=== PATIENT | male | born 1985 | race Caucasian/White ===

== ENCOUNTER 2017-07-06 10:56 | Emergency (ER) | payer BC ==
[2017-07-06 11:16] VITALS: BP 134/78
[2017-07-06] MEDS ORDERED: Doxycycline 100 MG Cap PO ONE (11:41)
[2017-07-06] MEDS ORDERED: Famotidine 20 MG Tab PO ONE (11:41)
--- NOTE | 2017-07-06 11:48 | EDM.PDOC ---
ED HPI GENERAL MEDICAL PROBLEM - General Chief Complaint: Skin Complaint Stated Complaint: RASH ON ARMS AND SHOULDERS Time Seen by Provider: 07/06/17 11:35 Source of Information: Reports: Patient History Limitations: Reports: No Limitations - History of Present Illness INITIAL COMMENTS - FREE TEXT/NARRATIVE: Patient is a 32-year-old male who presents to the ED complaining of a rash to his back and right upper arm. States this past Wednesday awoke with the rash to his back. States he itched it with worsening symptoms. States yesterday while at work he was itching the right upper arm and developed the same rash. There is some minimal clear drainage present. Yellowish crusting over noted. Sites are maculopapular in nature and raised with mild induration present. He has a history of abscesses to his armpits. Denies any history of MRSA. No other individuals in his family have similar rash. Questions if this maybe related to a bug bite. Denies any fever/chills or any additional complaints. Redness is localized. - Related Data Allergies Allergy/AdvReac Type Severity Reaction Status Date / Time pineapple Allergy Airway Verified 07/06/17 11:13 Tightness Home Meds: Home Meds Doxycycline [Vibramycin] 100 mg PO Q12HR #14 cap 07/06/17 [Rx] Past Medical History - Past Health History Medical/Surgical History: Denies Medical/Surgical History Social & Family History - Tobacco Use Smoking Status *Q: Current Some Day Smoker Years of Tobacco use: 10 Packs/Tins Daily: 0.1 Second Hand Smoke Exposure: No - Alcohol Use Days Per Week of Alcohol Use: 3 Number of Drinks Per Day: 3 Total Drinks Per Week: 9 - Recreational Drug Use Recreational Drug Use: No ED ROS GENERAL - Review of Systems Review Of Systems: ROS reveals no pertinent complaints other than HPI. ED EXAM, SKIN/RASH Exam: See Below Exam Limited By: No Limitations General Appearance: Alert, WD/WN, No Apparent Distress Ears: Hearing Grossly Normal Nose: Normal Inspection Throat/Mouth: Normal Voice, No Airway Compromise Neck: Normal Inspection, Supple Respiratory/Chest: No Respiratory Distress, No Accessory Muscle Use Cardiovascular: Normal Peripheral Pulses, Regular Rate, Rhythm Peripheral Pulses: 2+: Radial (R) Neurological: Alert, Oriented, CN II-XII Intact, Normal Cognition, No Motor/ Sensory Deficits Psychiatric: Normal Affect, Normal Mood Skin: Warm, Dry Location, Skin: Back (Upper back and base of the neck and right upper arm.: Maculopapular nature, minimal drainage present., Yellowish crusting present., Sites are indurated and raised) Course - Vital Signs Last Recorded V/S: Last Vital Signs Temp 97.7 F 07/06/17 11:13 Pulse 87 07/06/17 11:13 Resp BP 134/78 07/06/17 11:13 Pulse Ox 99 07/06/17 11:13 - Orders/Labs/Meds Meds: Medications Discontinued Medications Generic Name Dose Route Start Last Admin Trade Name Marissa PRN Reason Stop Dose Admin Doxycycline Hyclate 200 mg 07/06/17 11:41 07/06/17 12:00 Vibramycin PO 07/06/17 11:42 200 mg ONETIME ONE Administration Famotidine 40 mg 07/06/17 11:41 07/06/17 12:00 Pepcid PO 07/06/17 11:42 40 mg ONETIME ONE Administration - Re-Assessments/Exams Free Text/Narrative Re-Assessment/Exam: Patient has what appears to be bug bites to his right upper arm, upper back, and neck. Localized swelling with induration and yellowish crusting noted. He does have a history of abscesses to his armpits. No history of MRSA. Treatment at this point is doxycycline 100 mg twice a day and Pepcid 40 mg every day with Benadryl 50 mg every 6 hours as needed for itching. He'll utilize topical cortisone cream as well. I have ordered doxycycline 200 mg by mouth and Pepcid 40 mg here in the ED. Discharge instructions as documented. Departure - Departure Time of Disposition: 11:46 Disposition: Home, Self-Care 01 Condition: Good Clinical Impression: Acute maculopapular rash, Localized bacterial skin infection, Pruritic rash Clinical Impression: (Ruled Out): Urticaria - Discharge Information Prescriptions: Doxycycline [Vibramycin] 100 mg PO Q12HR #14 cap Instructions: Rash Referrals: PCP,None [Primary Care Provider] - Forms: ED Department Discharge, ED Return to Work/School Form Additional Instructions: Take doxycycline 100 mg twice a day for 7 days. Take Pepcid 40 mg every day for 7 days. For itching take Benadryl 50 mg every 6 hours as needed. Beware of Benadryl will cause drowsiness. Utilize localized [id number] hydrocortisone cream to affected areas. Do not scratch the areas. Wash hands after applying the order cortisone cream. If draining keep covered. I'll be her PCP the end of this week if symptoms aren't improving. Return to ED for any new or worsening symptoms. Unclear etiology of rash. Sites are infected secondary to itching.
== END 2017-07-06 11:55 | disposition home or self-care (01) ==
LOC: JD.ED 10:56
DX: L29.9 Pruritus, unspecified (principal); R21 Rash and other nonspecific skin eruption; F17.210 Nicotine dependence, cigarettes, uncomplicated; Z91.018 Allergy to other foods
CPT/HCPCS: 99282; A9270

== ENCOUNTER 2020-03-12 19:54 | Emergency (ER) | payer SELFPAY ==
[2020-03-12 20:10] VITALS: BP 151/73; PULSE 88
[2020-03-12] MEDS ORDERED: Cephalexin 500 MG Cap PO ONE (20:23)
--- NOTE | 2020-03-12 20:29 | EDM.PDOC ---
ED HPI GENERAL MEDICAL PROBLEM - General Chief Complaint: Skin Complaint Stated Complaint: bug bite Time Seen by Provider: 03/12/20 20:08 Source of Information: Reports: Patient, RN Notes Reviewed History Limitations: Reports: No Limitations - History of Present Illness INITIAL COMMENTS - FREE TEXT/NARRATIVE: Patient is a 34-year-old male who presents to the ED for the evaluation of a sore and redness to the upper inner part of his left arm. Patient states that he had 2 white pimple looking lesions on this area today, he was in the shower, and ended up popping so he scrubbed them with some soap, and went about his day. He noted that at after the end of work today his arm began to kind of throb and feel warm so he looked at this area again, he noticed a lot of redness and swelling. This is roughly a 9 cm x 9 cm patch. There is an area that is scabbed over in the middle of it. Patient denies any fever/chills, nausea/vomiting/diarrhea, or any other sick-like symptoms. Left Upper Arm Pain Score (Numeric/FACES): 4 - Related Data Allergies Allergy/AdvReac Type Severity Reaction Status Date / Time pineapple Allergy Airway Verified 03/12/20 20:10 Tightness Home Meds: Home Meds cephALEXin [Cephalexin] 500 mg PO BID #14 capsule 03/12/20 [Rx] Past Medical History - Past Health History Medical/Surgical History: Denies Medical/Surgical History Cardiovascular History: Reports: None Respiratory History: Reports: None Gastrointestinal History: Reports: None Genitourinary History: Reports: None Musculoskeletal History: Reports: None Neurological History: Reports: None Psychiatric History: Reports: None Endocrine/Metabolic History: Reports: Obesity/BMI 30+ Hematologic History: Reports: None Immunologic History: Reports: None Oncologic (Cancer) History: Reports: None Dermatologic History: Reports: None - Infectious Disease History Infectious Disease History: Reports: None - Past Surgical History HEENT Surgical History: Reports: Oral Surgery Social & Family History - Caffeine Use Caffeine Use: Reports: Coffee - Recreational Drug Use Recreational Drug Use: No ED ROS GENERAL - Review of Systems Review Of Systems: Comprehensive ROS is negative, except as noted in HPI. ED EXAM, SKIN/RASH Exam: See Below Exam Limited By: No Limitations General Appearance: Alert, WD/WN, No Apparent Distress Respiratory/Chest: No Respiratory Distress, Lungs Clear, Normal Breath Sounds, No Accessory Muscle Use, Chest Non-Tender Cardiovascular: Normal Peripheral Pulses, Regular Rate, Rhythm, No Murmur Peripheral Pulses: 3+: Radial (L), Radial (R) Extremities: Normal Range of Motion, Normal Capillary Refill Neurological: Alert, Oriented, Normal Cognition, No Motor/Sensory Deficits Psychiatric: Normal Affect, Normal Mood Skin: Warm, Dry, Intact, Normal Color, Erythema (roughly 9x9cm area to upper inner left arm with scab in the middle of this.), Increased Warmth (to area of concern) Course - Vital Signs Last Recorded V/S: Last Vital Signs Temp 97.5 F 03/12/20 20:07 Pulse 88 03/12/20 20:07 Resp 16 03/12/20 20:07 BP 151/73 H 03/12/20 20:07 Pulse Ox 96 03/12/20 20:07 - Orders/Labs/Meds Meds: Medications Discontinued Medications Generic Name Dose Route Start Last Admin Trade Name Marissa PRN Reason Stop Dose Admin Cephalexin 500 mg 03/12/20 20:23 Keflex PO 03/12/20 20:24 ONETIME ONE - Re-Assessments/Exams Free Text/Narrative Re-Assessment/Exam: 03/12/20 20:27 Patient presents to the ED for evaluation of some redness on his upper inner arm. Patient will be started on Keflex for suspected cellulitis. First dose to be given in the ER, he will need to fill the rest tomorrow and take as directed. Departure - Departure Time of Disposition: 20:27 Disposition: Home, Self-Care 01 Condition: Good Clinical Impression: Cellulitis Qualifiers: Site of cellulitis: extremity Site of cellulitis of extremity: upper extremity Laterality: left Qualified Code(s): L03.114 - Cellulitis of left upper limb - Discharge Information *PRESCRIPTION DRUG MONITORING PROGRAM REVIEWED*: No Prescriptions: cephALEXin [Cephalexin] 500 mg PO BID #14 capsule Instructions: Cellulitis, Adult, [id number] Referrals: PCP,None [Primary Care Provider] - Additional Instructions: You were evaluated in the ER today regarding a suspected skin infection. It does appear that you have a cellulitis. Your skin was marked around the borders of the redness, if this redness should extend 2 finger widths past this initial mariah, recommend you seek care for re-evaluation. You were given a antibiotic, cephalexin 500mg BID x 7 days please take as prescribed until the course is done or told otherwise by different provider. Please note that this antibiotic will take at least 48 hours to start working appropriately. You may try to use heat/ice packs to the area to help reduce pain/swelling. You may take 500 mg Tylenol or 600 mg ibuprofen every 6 hours as needed for further pain relief. Do not exceed 4000 mg Tylenol or 3200 mg ibuprofen in a 24 -hour time span. Please return to the ER at any time if your symptoms change or worsen. Sepsis Event Note (ED) - Evaluation Sepsis Screening Result: No Definite Risk - Focused Exam Vital Signs: Vital Signs Temp Pulse Resp BP Pulse Ox 03/12/20 20:07 97.5 F 88 16 151/73 H 96
== END 2020-03-12 20:45 | disposition home or self-care (01) ==
LOC: JD.ED 19:54
DX: L03.114 Cellulitis of left upper limb (principal); E66.9 Obesity, unspecified; Z68.43 Body mass index [BMI] 50.0-59.9, adult; Z91.018 Allergy to other foods
CPT/HCPCS: 99282; 99283; A9270-GY

== ENCOUNTER 2021-08-03 08:16 | Emergency (ER) | payer OTHER ==
[2021-08-03 08:35] VITALS: BP 198/112; PULSE 98
--- NOTE | 2021-08-03 08:50 | EDM.PDOC ---
ED HPI GENERAL MEDICAL PROBLEM - General Chief Complaint: Lower Extremity Injury/Pain Stated Complaint: ankle pain Time Seen by Provider: 08/03/21 08:33 Source of Information: Reports: Patient, RN Notes Reviewed - History of Present Illness INITIAL COMMENTS - FREE TEXT/NARRATIVE: 36 yr old male comes in with R ankle pain that started about 2 wks ago, does not remember any particular injury. The was more with wt bearing, now "hurts all of the time". No hx of gout. On his feet a lot on hard cement floor at work. right foot Pain Score (Numeric/FACES): 7 - Related Data Allergies Allergy/AdvReac Type Severity Reaction Status Date / Time pineapple Allergy Airway Verified 08/03/21 08:36 Tightness Home Meds: Home Meds Naproxen [Naprosyn] 500 mg PO Q12HR #14 tab 08/03/21 [Rx] predniSONE [Prednisone] 50 mg PO DAILY #7 tablet 08/03/21 [Rx] Past Medical History - Past Health History Medical/Surgical History: Denies Medical/Surgical History Cardiovascular History: Reports: None Respiratory History: Reports: None Gastrointestinal History: Reports: None Genitourinary History: Reports: None Musculoskeletal History: Reports: None Neurological History: Reports: None Psychiatric History: Reports: None Endocrine/Metabolic History: Reports: Obesity/BMI 30+ Hematologic History: Reports: None Immunologic History: Reports: None Oncologic (Cancer) History: Reports: None Dermatologic History: Reports: None - Infectious Disease History Infectious Disease History: Reports: None - Past Surgical History HEENT Surgical History: Reports: Oral Surgery Social & Family History - Tobacco Use Tobacco Use Status *Q: Never Tobacco User - Caffeine Use Caffeine Use: Reports: Coffee - Recreational Drug Use Recreational Drug Use: No Review of Systems - Review of Systems Review Of Systems: See Below Constitutional: Denies: Chills, Fever Eyes: Reports: No Symptoms Mouth/Throat: Reports: No Symptoms Respiratory: Reports: No Symptoms Cardiovascular: Reports: No Symptoms GI/Abdominal: Reports: No Symptoms Musculoskeletal: Reports: Joint Pain Neurological: Reports: No Symptoms ED EXAM, GENERAL - Physical Exam Exam: See Below General Appearance: Alert, No Apparent Distress Head: Atraumatic Neck: Supple Respiratory/Chest: No Respiratory Distress Extremities: Other (mild to moderate tenderness miedial and lateral ankle, slight swelling, no warmth or erythema, has an abrasion dorsal foot) Skin Exam: Warm, Dry, Normal Color Course - Vital Signs Last Recorded V/S: Last Vital Signs Temp 98.8 F 08/03/21 08:32 Pulse 98 08/03/21 08:32 Resp 18 08/03/21 08:32 BP 198/112 H 08/03/21 08:32 Pulse Ox 95 08/03/21 08:32 - Orders/Labs/Meds Meds: Medications Discontinued Medications Generic Name Dose Route Start Last Admin Trade Name Marissa PRN Reason Stop Dose Admin Naproxen 500 mg 08/03/21 09:49 08/03/21 10:03 Naproxen 500 Mg Tab PO 08/03/21 09:50 500 mg ONETIME ONE Administration Prednisone 40 mg 08/03/21 09:49 08/03/21 10:03 Prednisone 20 Mg Tab PO 08/03/21 09:50 40 mg ONETIME ONE Administration - Re-Assessments/Exams Free Text/Narrative Re-Assessment/Exam: 08/03/21 10:42 X ray no fx. This may be a sprain, repetitive stress but may also be gout, discharge instr. as documented. Departure - Departure Time of Disposition: 10:11 Disposition: Home, Self-Care 01 Condition: Fair Clinical Impression: Ankle pain, right Qualifiers: Chronicity: acute Qualified Code(s): M25.571 - Pain in right ankle and joints of right foot - Discharge Information Prescriptions: Naproxen [Naprosyn] 500 mg PO Q12HR #14 tab predniSONE [Prednisone] 50 mg PO DAILY #7 tablet Instructions: Ankle Pain Referrals: PCP,None [Primary Care Provider] - Forms: ED Department Discharge Additional Instructions: Rest and elevate foot and ankle as much as possible. Naprosyn 500 mg twice daily. Prednisone 50 q AM for 1 week. Prescriptions have been sent to [facility]. They open at 12 noon today and are open only until 4 PM. Follow up clinic if not much better within 5 to 7 days as expected. Return to ED as needed. Sepsis Event Note (ED) - Evaluation Sepsis Screening Result: No Definite Risk - Focused Exam Vital Signs: Vital Signs Temp Pulse Resp BP Pulse Ox 08/03/21 08:32 98.8 F 98 18 198/112 H 95
[2021-08-03] MEDS ORDERED: predniSONE 20 MG Tab PO ONE (09:49)
[2021-08-03] MEDS ORDERED: Naproxen 500 MG Tab PO ONE (09:49)
--- NOTE | 2021-08-03 10:13 | CR ---
Right ankle: 4 views of the right ankle were obtained. Comparison: No prior ankle study is available. Plantar spur is noted. Ankle mortise is symmetric. No acute fracture, dislocation or other bony abnormality is appreciated. Impression: 1. Plantar spur. 2. No acute bony abnormality is seen on right ankle exam. Diagnostic code #2
== END 2021-08-03 10:17 | disposition home or self-care (01) ==
LOC: JD.ED 08:16
DX: M25.571 Pain in right ankle and joints of right foot (principal); E66.9 Obesity, unspecified; Z91.018 Allergy to other foods; Z68.43 Body mass index [BMI] 50.0-59.9, adult
CPT/HCPCS: 73610; 99283; A9270; J7512

== ENCOUNTER 2022-07-30 10:45 | Emergency (ER) | payer OTHER ==
[2022-07-30] MEDS ORDERED: Sodium Chloride 0.9% 10 ML Syringe FLUSH PRN (11:07)
[2022-07-30] MEDS ORDERED: Dicyclomine 10 MG Cap PO ONE (12:54)
[2022-07-30] MEDS ORDERED: Ondansetron 4 MG Tab.DIS PO ONE (12:54)
[2022-07-30 13:18] VITALS: BP 144/84; PULSE 77
== END 2022-07-30 13:18 | disposition home or self-care (01) ==
LOC: JD.ED 10:45
DX: R10.32 Left lower quadrant pain (principal); F17.210 Nicotine dependence, cigarettes, uncomplicated; E66.9 Obesity, unspecified; Z68.43 Body mass index [BMI] 50.0-59.9, adult; Z91.018 Allergy to other foods
CPT/HCPCS: 36415; 74176; 80053; 81001; 85025; 86140; 99284; A9270; J3490